=== PATIENT | female | born 1955 | race African-American/Black ===

== ENCOUNTER 2017-06-27 16:19 | Emergency (ER) | payer MEDICARE, OTHER ==
[~2017-06-27] VITALS: Ht 157.5 cm; Wt 86.2 kg
== END 2017-06-27 18:14 | disposition home or self-care (01) ==
LOC: CED 16:19
DX: E11.649 Type 2 diabetes mellitus with hypoglycemia without coma (principal); I10 Essential (primary) hypertension; F17.210 Nicotine dependence, cigarettes, uncomplicated; Z91.040 Latex allergy status
CPT/HCPCS: 82947; 99285